=== PATIENT | female | born 1965 | race Native Hawaiian/Other Pacific Islander ===

== ENCOUNTER 2019-11-11 09:13 | Outpatient (CLI) | payer OTHER | END 2019-11-11 19:05 | disposition home or self-care (01) | LOC: LABW 09:13 | PROVIDERS: ATTEND Internal Medicine | DX: U07.1 COVID-19 (principal); Z20.828 Contact with and (suspected) exposure to other viral communicable diseases; J40 Bronchitis, not specified as acute or chronic | CPT/HCPCS: 87635; G2023; U0003 ==